=== PATIENT | male | born 1990 | race African-American/Black ===

== ENCOUNTER 2017-02-28 07:12 | Emergency (ER) | payer MEDICAID, MEDICARE ==
[~2017-02-28] VITALS: Ht 190.5 cm; Wt 63.5 kg
[2017-02-28] MEDS ORDERED: Norco 5mg/325mg tab ORAL ONE (07:30)
[2017-02-28] MEDS ORDERED: AMOXICILLIN500 MG ORAL (07:32)
[2017-02-28] MEDS ORDERED: HYDROCODON-ACE1 EA15 ORAL (07:32)
--- NOTE | 2017-02-28 07:32 | Emergency Room Report ---
History of Present Illness General Chief Complaint: Toothache Source: Patient Present Illness HPI Is a 27-year-old male with no past medical history. He presents with dental pain has been on off for a month. He saw his dentist already. Once he get back to [place] he supposed to have filling done. His pain got worse last night. Unable to sleep. Throbbing in nature. Localized the right up her face. No swelling. No fever or chills. Denies any other complaint. Allergies: Coded Allergies: IBUPROFEN (Verified Allergy, Unknown, 02/28/17) Patient History Past Medical History: see triage record, old chart reviewed Past Surgical History: other Pertinent Family History: none Social History: Denies: drug use Immunizations: other Reviewed Nursing Documentation: PMH: Agreed, PSxH: Agreed Nursing Documentation-PMH Past Medical History: No Stated History Review of Systems Eye: Denies: eye pain, blurred vision ENT: Denies: ear pain, nose congestion, throat swelling Respiratory: Denies: cough, shortness of breath Cardiovascular: Denies: chest pain, palpitations Gastrointestinal: Denies: abdominal pain, diarrhea, nausea, vomiting Musculoskeletal: Denies: back pain, joint pain Skin: Denies: rash Neurological: Denies: headache, numbness Endocrine: Denies: increased thirst, increased urine Hematologic/Lymphatic: Denies: easy bruising All Other Systems: negative except mentioned in HPI Physical Exam Vital Signs Date Time Temp Pulse Resp B/P (MAP) Pulse Ox O2 Delivery O2 Flow Rate FiO2 02/28/17 07:15 97.9 71 15 119/76 100 Room Air vitals normal Sp02 EP Interpretation: reviewed, normal General Appearance: well appearing, no apparent distress, alert Head: normocephalic, atraumatic Eyes: bilateral eye PERRL, bilateral eye EOMI ENT: hearing grossly normal, normal pharynx, other - He has some tenderness to of the right upper jaw. No abscess. Neck: full range of motion, supple, no meningismus Respiratory: chest non-tender, lungs clear, normal breath sounds Cardiovascular #1: regular rate, rhythm, no murmur Gastrointestinal: normal bowel sounds, non tender, no mass, no organomegaly, no bruit, non-distended Musculoskeletal: back normal, gait/station normal, normal range of motion Psychiatric: mood/affect normal Skin: warm/dry Medical Decision Making Diagnostic Impression: Primary Impression: Toothache ER Course Patient with dental pain. No abscess that can be I&D. No cellulitis. We'll discharge home. Last Vital Signs Date Time Temp Pulse Resp B/P (MAP) Pulse Ox O2 Delivery O2 Flow Rate FiO2 02/28/17 07:15 97.9 71 15 119/76 100 Room Air Status: improved Disposition: HOME, SELF-CARE Condition: Stable Scripts Hydrocodone/Acetaminophen 5-325* (HYDROCODONE/ACETAMINOPHEN 5-325*) 1 Each Tablet 1 TAB ORAL Q6H Y for For Pain, #15 TAB 0 Refills Prov: ALISIA RUSSELL M.D. 02/28/17 Amoxicillin* (AMOXIL*) 500 Mg Capsule 500 MG ORAL THREE TIMES A DAY, #21 CAP Prov: ALISIA RUSSELL M.D. 02/28/17 Patient Instructions: Dental Pain Additional Instructions: Followup with your dentist DONNIE. Return if symptom worsen. ALISIA RUSSELL M.D. Feb 28, 2017 07:32
[2017-02-28 07:49] VITALS: BP 122/68
== END 2017-02-28 07:50 | disposition home or self-care (01) ==
LOC: EMR 07:35
DX: K08.89 Other specified disorders of teeth and supporting structures (principal); Z88.6 Allergy status to analgesic agent
CPT/HCPCS: 99284